=== PATIENT | male | born 1940 | race Caucasian/White ===

== ENCOUNTER 2024-05-18 09:40 | Day surgery (SDC) | payer OTHER ==
[~2024-05-18] VITALS: Ht 170.2 cm; Wt 63.5 kg
[~2024-05-18 09:40] MED LIST: CEFAZOLIN SOD 2 GM in D5W 50 ML IV ONE; oxyCODONE HCL 10 MG TAB.ER.12H PO ONE
[2024-05-18] MEDS ORDERED: ACETAMINOPHEN 500 MG TABLET ONE (10:00)
[2024-05-18] MEDS ORDERED: GABAPENTIN 300 MG CAPSULE ONE (10:05)
[2024-05-18] MEDS ORDERED: oxyCODONE HCL 10 MG TAB.ER.12H PO ONE (10:06)
[2024-05-18] MEDS: GABAPENTIN 300 MG CAPSULE PO ONE (10:15)
[2024-05-18] MEDS: ACETAMINOPHEN 500 MG TABLET PO ONE (10:15)
[2024-05-18] MEDS ORDERED: oxyCODONE HCL 5 MG TABLET PO PRN (11:00)
[2024-05-18] MEDS ORDERED: HYDROmorphone 1 MG/ML INJ. CARTRIDGE IVP PRN ×6 (11:00→14:15)
[2024-05-18] MEDS ORDERED: traMADol HCL HCL 50 MG TABLET (ULTRAM) PO PRN (11:00)
[2024-05-18] MEDS ORDERED: LORATADINE 10 MG TABLET PO PRN (11:00)
[2024-05-18] MEDS ORDERED: MIDAZOLAM HCL 2 MG/2 ML VIAL (VERSED) ONE (11:31)
[2024-05-18] MEDS ORDERED: PROPOFOL DRIP 100 ML IV ONE (11:31)
[2024-05-18] MEDS ORDERED: ONDANSETRON HCL 4 MG/2 ML VIAL IVP PRN (11:45)
[2024-05-18] MEDS ORDERED: WATER FOR IRRIGATION,STERILE 1,000 ML IRRIG.SOLN IR ONE (12:06)
[2024-05-18] MEDS ORDERED: NS IRRIG SOLN 1000 ML IR ONE (12:06)
[2024-05-18] MEDS ORDERED: TRANEXAMIC ACID 1,000 MG/10 ML VIAL ONE (12:06)
[2024-05-18] MEDS ORDERED: BUPIVACAINE /DEX PF 0.75% SPINAL 2 ML AMP INJ ONE (12:06)
[2024-05-18] MEDS ORDERED: ROPIVACAINE HCL/PF 5 MG/ML 0.5% 30 ML VIAL ONE (12:06)
[2024-05-18] MEDS ORDERED: LR 1,000 ML IV.SOLN IV ONE (12:06)
[2024-05-18] MEDS ORDERED: NALOXONE HCL 0.4 MG/ML AMP (NARCAN) IVP PRN (14:15)
[2024-05-18] MEDS ORDERED: hydrALAZINE HCL 20 MG/ML VIAL IV PRN (14:15)
[2024-05-18] MEDS: TAMSULOSIN HCL 0.4 MG CAP PO STA (15:22)
[2024-05-18] MEDS ORDERED: CEFEPIME 1 GM in D5W 50 ML IV SCH (15:30)
[2024-05-18] MEDS ORDERED: TAMSULOSIN HCL 0.4 MG CAP PO ONE (17:30)
[2024-05-18] MEDS: ONDANSETRON HCL 4 MG/2 ML VIAL IVP PRN (17:30)
[2024-05-18] MEDS: ONDANSETRON HCL 4 MG/2 ML VIAL ONE (17:45)
[2024-05-18] MEDS ORDERED: METOCLOPRAMIDE HCL 10 MG/2 ML VIAL IVP PRN (18:45)
[2024-05-18] MEDS ORDERED: LACTULOSE 20 GM/30 ML UDC PO PRN (18:45)
[2024-05-18] MEDS ORDERED: DIPHENHYDRAMINE HCL 25 MG CAPSULE PO PRN (18:45)
[2024-05-18] MEDS ORDERED: SER25 PO (18:50)
[2024-05-18] MEDS ORDERED: LOSA-412 PO (18:50)
[2024-05-18] MEDS ORDERED: SIMV-343 PO (18:50)
[2024-05-18 20:00] VITALS: BP_SYST 115; PULSE 64; RESP 14; TEMP 97.5
[2024-05-18] MEDS: ACETAMINOPHEN 500 MG TABLET PO SCH (21:19)
[2024-05-18] MEDS: KETOROLAC TROMETHAMINE 10 MG TABLET (TORADOL) PO SCH (21:19)
[2024-05-19] MEDS: oxyCODONE HCL 5 MG TABLET PO PRN (02:21)
[2024-05-19 04:00] VITALS: BP_SYST 104; PULSE 75; RESP 16; TEMP 98.4; O2SAT 99
[2024-05-19 08:00] VITALS: BP_SYST 98; PULSE 70; RESP 18; TEMP 97.8; O2SAT 98
[2024-05-19] MEDS: ASPIRIN 81 MG TAB.CHEW PO SCH (08:40)
[2024-05-19] MEDS: TAMSULOSIN HCL 0.4 MG CAP PO SCH (08:40)
[2024-05-19 09:54] VITALS: BP_SYST 101; PULSE 75; RESP 18; TEMP 98.5; O2SAT 99
[2024-05-19] MEDS ORDERED: CELECOXIB 200 MG CAPSULE PO SCH (11:00)
== END 2024-05-19 11:00 | disposition home or self-care (01) ==
LOC: SDS 09:40 → SMU 09:41 → SDS 05-19 11:00
PROVIDERS: ATTEND Orthopaedic Surgery Sports Medicine
DX: M17.11 Unilateral primary osteoarthritis, right knee (principal); M65.341 Trigger finger, right ring finger; I10 Essential (primary) hypertension; E78.5 Hyperlipidemia, unspecified; E11.9 Type 2 diabetes mellitus without complications; Z80.0 Family history of malignant neoplasm of digestive organs; Z79.899 Other long term (current) drug therapy
CPT/HCPCS: 27447; 97162; 64447; 87081; 73560; 96379; 97116 ×2; 88305; 88311; 97110; 97530; J3490 ×2; J0690; J3465; J2405; J2704; J7060; J7120; C1776 ×3; C1713 ×2; J0692